=== PATIENT | female | born 1945 | race Caucasian/White ===

== ENCOUNTER 2017-07-23 14:45 | Inpatient (IN) | payer OTHER, MEDICARE ==
--- NOTE | 2017-07-23 15:07 | CPEKG ---
Heart Rate: 77 RR Interval: 779 P-R Interval: 132 QRSD Interval: 94 QT Interval: 408 QTC Interval: 462 P [place]: 56 QRS [place]: -4 T Wave [place]: 76 EKG Severity - NORMAL ECG - EKG Impression: SINUS RHYTHM Electronically Signed By: Franklin Boyer 23-Jul-2017 15:28:45
[2017-07-23] MEDS ORDERED: LIDOCAINE/PRILOCAINE 1 EACH CRTUBE TP ONE (15:16)
--- NOTE | 2017-07-23 15:22 | EDPHY ---
H & P Time Seen by Provider: 07/23/17 15:04 HPI/ROS: Chief complaint. Chest pain HPI. 72-year-old female presents emergency department with chest pain. She felt well this morning and then about 1:00 p.m. developed a cold sweat and tightness in her chest. It went to both shoulders in her throat as well as to her back. Her jaw felt tight. She was nauseated. Her symptoms were worse with climbing stairs and better after she laid down to rest. She did develop a headache. She had half of a 325 mg aspirin prior to arrival. Her symptoms continue but are better. She did notice slight shortness of breath. No pain with deep breathing. No unusual leg pain or swelling. No recent fever or cough though she has a chronic cough secondary to her lung cancer. She had similar symptoms 2 years ago with a normal nuclear stress test. ROS Constitutional. no fever/chills, no weakness Eyes. no problems with vision ENT. no sore throat, no nasal drainage Cardiovascular. Chest tightness Respiratory. Shortness of breath with chronic cough Abdominal. no abdominal pain, no nausea/vomiting, no diarrhea . no problems urinating MS. no calf pain/swelling, no neck/back pain, no joint pain Skin. Diaphoresis Lymph. no swollen glands Neuro. Headache Past Medical/Surgical History: Metastatic lung cancer in active treatment, depression, mitral valve prolapse, hypothyroid, GERD, right lower lobectomy, partial thyroidectomy Social History: , nonsmoker, no alcohol Smoking Status: Never smoked Physical Exam: General Appearance: Alert well-developed female mild distress vital signs are stay Eyes: Pupils equal and round no pallor or injection. ENT, Mouth: Mucous membranes are moist. Respiratory: There are no retractions, lungs are clear to auscultation. Decreased breath sounds on right lower lobe secondary to lobectomy Cardiovascular: Regular rate and rhythm. Gastrointestinal: Abdomen is soft and nontender, no masses, bowel sounds normal. Neurological: Awake and alert, sensory and motor exams grossly normal. Skin: Warm and dry, no rashes. Musculoskeletal: Neck is supple nontender. Extremities symmetrical, full range of motion. Psychiatric: Patient is oriented X 3, there is no agitation. Constitutional: Initial Vital Signs Temperature (C) 36.5 C 07/23/17 14:53 Heart Rate 81 07/23/17 14:53 Respiratory Rate 16 07/23/17 14:53 Blood Pressure 134/78 H 07/23/17 14:53 O2 Sat (%) 97 07/23/17 14:53 O2 Delivery Mode Room Air Allergies/Adverse Reactions: Penicillins Allergy (Mild, Verified 07/23/17 14:49) Rash Sulfa (Sulfonamide Antibiotics) Allergy (Mild, Verified 07/23/17 14:49) Rash Home Medications: Medication Instructions Recorded Bimatoprost 0.03% [LUMIGAN 0.03%] 1 drops EACHEYE HS 08/03/14 Calcium Carbonate [[id number]] 500 mg PO BID 08/03/14 Folic Acid [Folic Acid 1 MG (*)] 5 mg PO DAILY 08/03/14 Levothyroxine [Synthroid 100 mcg 100 mcg PO DAILY06 08/03/14 (*)] Omeprazole [Prilosec 20 mg] 20 mg PO Q2D PRN 08/03/14 Ibuprofen [Motrin (*)] 600 mg PO Q6 PRN #30 tab 08/04/14 Desvenlafaxine 07/23/17 Hydrocodone Bit/Acetaminophen 07/23/17 LORazepam 07/23/17 Mirtazapine 07/23/17 Medical Decision Making - Diagnostics EKG Interpretation: EKG interpreted by me shows normal sinus rhythm with normal interval. Normal axis. QRS is normal there is no significant ST elevation or depression. No arrhythmia. The rate is 77 Imaging Results: Imaging Impressions Chest X-Ray 07/23/17 16:23 Impression: 1. Bilateral opacities could be related to heart failure secondary to heart attack versus pneumonia. 2. See above report for additional findings. Results called and discussed with LINDY HUTTON M.D. on 07/23/2017 at 17:10 Procedures: IV normal saline, monitor Aspirin in the emergency department Nitropaste applied in the emergency department ED Course/Re-evaluation: Re-evaluation 5:15 p.m. the patient and I and her discussed imaging lab EKG findings. We discussed treatment plan including recommendation for admission. They expressed understanding and agreement I consulted and discussed the case with Dr. Wilder, hospitalist who agrees to the admission I consulted and discussed the case with Dr. Shaikh, cardiology, who will see the patient in consultation. He recommends an inch of nitropaste q.6 hours. This is ordered Differential Diagnosis: I considered acute coronary syndrome and D the patient has an elevated troponin though she does not have ST elevation [place]. I also considered pneumonia, pneumothorax, pulmonary embolus - Data Points Laboratory Results: Laboratory Results 07/23/17 15:25 07/23/17 15:25 07/23/17 07/23/17 15:25 15:25 WBC 7.87 10^3/uL 10^3/uL (3.80-9.50) RBC 2.81 10^6/uL L 10^6/uL (4.18-5.33) Hgb 9.5 g/dL L g/dL (12.6-16.3) Hct 27.9 % L % (38.0-47.0) MCV 99.3 fL fL (81.5-99.8) MCH 33.8 pg pg (27.9-34.1) MCHC 34.1 g/dL g/dL (32.4-36.7) RDW 13.8 % % (11.5-15.2) Plt Count 350 10^3/uL 10^3/uL (150-400) MPV 8.7 fL fL (8.7-11.7) Neut % (Auto) 74.3 % H % (39.3-74.2) Lymph % (Auto) 12.5 % L % (15.0-45.0) [place] % (Auto) 8.9 % % (4.5-13.0) Eos % (Auto) 2.0 % % (0.6-7.6) Baso % (Auto) 1.0 % % (0.3-1.7) Nucleat RBC Rel Count 0.0 % % (0.0-0.2) Absolute Neuts (auto) 5.85 10^3/uL 10^3/uL (1.70-6.50) Absolute Lymphs (auto) 0.98 10^3/uL L 10^3/uL (1.00-3.00) Absolute Monos (auto) 0.70 10^3/uL 10^3/uL (0.30-0.80) Absolute Eos (auto) 0.16 10^3/uL 10^3/uL (0.03-0.40) Absolute Basos (auto) 0.08 10^3/uL 10^3/uL (0.02-0.10) Absolute Nucleated RBC 0.00 10^3/uL 10^3/uL (0-0.01) Immature Gran % 1.3 % H % (0.0-1.1) Immature Gran # 0.10 10^3/uL 10^3/uL (0.00-0.10) Sodium 132 mEq/L L mEq/L (134-144) Potassium 4.8 mEq/L mEq/L (3.5-5.2) Chloride 101 mEq/L mEq/L (97-110) Carbon Dioxide 20 mEq/l L mEq/l (22-31) Anion Gap 11 mEq/L mEq/L (8-16) BUN 19 mg/dL mg/dL (7-23) Creatinine 1.2 mg/dL H mg/dL (0.6-1.0) Estimated GFR 44 Glucose 96 mg/dL mg/dL (70-100) Calcium 9.0 mg/dL mg/dL (8.5-10.4) Troponin I 0.587 ng/mL H ng/mL (0.000-0.034) Medications Given: Discontinued Medications Aspirin (Aspirin) 162 mg PO EDNOW ONE Stop: 07/23/17 15:45 Last Admin: 07/23/17 15:46 Dose: 162 mg Departure - Departure Disposition: [facility] Inpatient Acute Clinical Impression: Non-ST elevation [place] (NSTEMI) Chest pain Qualifiers: Chest pain type: chest pain due to myocardial ischemia Ischemic chest pain type : unstable angina pectoris Qualified Code(s): I20.0 - Unstable angina Condition: Fair
[2017-07-23] MEDS ORDERED: ASPIRIN 81 MG CHEWABLE TAB PO ONE (15:44)
[2017-07-23 16:33] LABS: % IMMATURE GRANULYOCYTES 1.3 % (0.0-1.1); ADD DIFF? NO; ADD MORPH? NO; ADD SCAN? NO; ATYPICAL LYMPHOCYTE FLAG 0 (0-99); FRAGMENT RBC FLAG 0 (0-99); HEMATOCRIT 27.9 % (38.0-47.0); HEMOGLOBIN 9.5 g/dL (12.6-16.3); LEFT SHIFT FLG 10 (0-99); LIPEMIA HEMOLYSIS FLAG 90 (0-99); MEAN CELL HEMOGLOBIN 33.8 pg (27.9-34.1); MEAN CELL HEMOGLOBIN CONCENTR. 34.1 g/dL (32.4-36.7); MEAN CELL VOLUME 99.3 fL (81.5-99.8); MEAN PLATELET VOLUME 8.7 fL (8.7-11.7); PLATELET CLUMPS FLAG 0 (0-99); PLATELET COUNT 350 10^3/uL (150-400); RED BLOOD CELL COUNT 2.81 10^6/uL (4.18-5.33); RED CELL DISTRIBUTION WIDTH 13.8 % (11.5-15.2)
[2017-07-23 16:39] LABS: ANION GAP 11 mEq/L (8-16); CARBON DIOXIDE 20 mEq/l (22-31); CHLORIDE 101 mEq/L (97-110); CREATININE 1.2 mg/dL (0.6-1.0); GLOMERULAR FILTRATION RATE 44; GLUCOSE 96 mg/dL (70-100); POTASSIUM 4.8 mEq/L (3.5-5.2); SODIUM 132 mEq/L (134-144)
[2017-07-23 16:49] LABS: TROPONIN I 0.587 ng/mL (0.000-0.034)
[2017-07-23] MEDS ORDERED: NITROGLYCERIN 2% 1 GM PACKET ONE (17:45)
[2017-07-23] MEDS: NITROGLYCERIN 2% 1 GM PACKET TP SCH ×2 (17:50→23:04)
[2017-07-23] MEDS ORDERED: ACETAMINOPHEN 325 MG TAB PO PRN (20:31)
[2017-07-23] MEDS ORDERED: ONDANSETRON 4 MG/2 ML VIAL IVP PRN (20:31)
[2017-07-23] MEDS ORDERED: ONDANSETRON DISINTEGRATING 4 MG TAB PO PRN (20:31)
[2017-07-23] MEDS ORDERED: LORazepam 1 MG TAB PO PRN (20:34)
--- NOTE | 2017-07-23 21:49 | GHP ---
[f rep st] HISTORY AND PHYSICAL DATE OF ADMISSION: 07/23/2017 CHIEF COMPLAINT: Chest pain. HISTORY OF PRESENT ILLNESS: This is a 72-year-old female with a history of metastatic lung cancer. This was diagnosed 4 or 5 years ago. Then she did undergo lobectomy when it was thought to be a chelsey tary nodule. However, 6 months later, she developed bone metastasis. She has been undergoing therap y on and off since then. She had been on a trial recently. She was in her usual state of health thi s morning, but then in the early afternoon, developed a sudden onset of chest pressure associated wit h diaphoresis and shortness of breath. No nausea and vomiting. Chest pain continued and so she took an aspirin. Now it is completely resolved with nitroglycerin. She has had no previous cardiac hist ory. No fevers or chills. Shortness of breath is better. REVIEW OF SYSTEMS: A 10-point review of systems was obtained and other than stated was negative. PAST MEDICAL HISTORY: 1. Metastatic lung cancer to bone. 2. Depression. 3. Hypothyroidism. SOCIAL HISTORY: No smoking. Occasional alcohol. FAMILY HISTORY: Father had coronary disease in his 50s. PHYSICAL EXAM: VITAL SIGNS: Afebrile, blood pressure is 143/73, heart rate 79, oxygen saturation 94 % on room air. GENERAL: The patient is well developed, in no apparent distress. HEENT: Nonicteric sclerae. Extraocular movements intact. Moist mucous membranes. NECK: Supple. No thyromegaly. L UNGS: Good effort. Clear to auscultation bilaterally. CARDIOVASCULAR: Regular rate and rhythm. N o murmurs or gallops. ABDOMEN: Positive bowel sounds. Soft, nontender, nondistended. No hepatospl enomegaly. EXTREMITIES: No clubbing, cyanosis, or edema. SKIN: Without rash. Dry and intact. NE URO: Alert and oriented x3. Moving all 4 extremities equally. PSYCH: Normal mood and affect. LABORATORY DATA: Hemoglobin is 9.5, which is close to her baseline. Chemistry does show a slightly elevated creatinin e at 1.2, with the last creatinine 1.1 a few months ago. This is fairly baseline. EKG personally reviewed and interpreted reveals subtle ST-segment depressions in lead 2 and maybe the lateral leads, but no ST-segment changes. Chest x-ray shows some possible asymmetric edema. ASSESSMENT: This is a 72-year-old female presenting with chest pain and elevated troponin. PLAN: 1. [id number]-[id number] elevation [place]. The patient is chest pain-free. Cardiology has been called. They would like to keep her n.p.o. We will get another troponin here now and in the morning. Will contin ue on aspirin. If she develops any worsening chest pain, then we will consider an emergent angiogram . Otherwise, she will get an angiogram tomorrow. 2. Possible pulmonary edema versus pneumonia. The patient is not really having symptoms of pneumoni a. She does have a lung malignancy. She does not seem to be that symptomatic currently. After her angiogram, could consider Lasix. Would also consider CAT scanning to get a better look. Her BNP is somewhat elevated, but not horribly. Will get an echocardiogram as well. 3. History of lung cancer. She sees Nita Murguia. Apparently stable. /[id number]/MODL
[2017-07-23] MEDS: BRIMONIDINE 0.1% 5 ML OPHT.BTL EACHEYE SCH (22:23)
[2017-07-23] MEDS: BIMATOPROST 0.03% EACHEYE SCH (22:23)
[2017-07-23] MEDS: MIRTAZAPINE 30 MG ODTAB PO SCH (22:49)
[2017-07-23] MEDS: HYDROCODONE/APAP 5/325 TAB PO PRN (22:59)
[2017-07-24] MEDS: HYDROCODONE/APAP 5/325 TAB PO PRN ×2 (04:29→20:04)
[2017-07-24 04:43] LABS: APTT 25.9 SEC (23.0-38.0); INR 1.04 (0.83-1.16); PROTIME(PATIENT) 13.5 SEC (12.0-15.0)
[2017-07-24 04:47] LABS: % IMMATURE GRANULYOCYTES 1.1 % (0.0-1.1); ABSOLUTE IMMATURE GRANULOCYTES 0.07 10^3/uL (0.00-0.10); ADD DIFF? NO; ADD MORPH? NO; ADD SCAN? NO; ATYPICAL LYMPHOCYTE FLAG 0 (0-99); FRAGMENT RBC FLAG 0 (0-99); HEMATOCRIT 26.5 % (38.0-47.0); HEMOGLOBIN 8.9 g/dL (12.6-16.3); LEFT SHIFT FLG 10 (0-99); LIPEMIA HEMOLYSIS FLAG 80 (0-99); MEAN CELL HEMOGLOBIN 33.6 pg (27.9-34.1); MEAN CELL HEMOGLOBIN CONCENTR. 33.6 g/dL (32.4-36.7); MEAN PLATELET VOLUME 8.5 fL (8.7-11.7); PLATELET CLUMPS FLAG 10 (0-99); PLATELET COUNT 312 10^3/uL (150-400); RED BLOOD CELL COUNT 2.65 10^6/uL (4.18-5.33); RED CELL DISTRIBUTION WIDTH 13.7 % (11.5-15.2)
[2017-07-24 05:00] LABS: ALANINE AMINOTRANSFERASE 32 IU/L (9-52); ALBUMIN 3.2 g/dL (3.5-5.0); ALKALINE PHOSPHATASE 88 IU/L (38-126); ANION GAP 7 mEq/L (8-16); ASPARTATE AMINOTRANSFERASE 33 IU/L (14-46); BILIRUBIN,TOTAL 0.3 mg/dL (0.1-1.4); CARBON DIOXIDE 22 mEq/l (22-31); CHLORIDE 103 mEq/L (97-110); CREATININE 1.2 mg/dL (0.6-1.0); GLOMERULAR FILTRATION RATE 44; GLUCOSE 85 mg/dL (70-100); POTASSIUM 4.7 mEq/L (3.5-5.2); SODIUM 132 mEq/L (134-144); TOTAL PROTEIN 5.7 g/dL (6.3-8.2)
[2017-07-24] MEDS: NITROGLYCERIN 2% 1 GM PACKET TP SCH ×3 (06:18→19:34)
[2017-07-24] MEDS ORDERED: FAMOTIDINE 20 MG TAB PO ONE (07:26)
[2017-07-24] MEDS ORDERED: diphenhydrAMINE 25 MG CAP PO ONE (07:26)
[2017-07-24] MEDS ORDERED: DIAZEPAM 5 MG TAB PO ONE (07:26)
[2017-07-24] MEDS ORDERED: TEMAZEPAM 15 MG CAP PO PRN (07:26)
--- NOTE | 2017-07-24 07:28 | PDPROPOC ---
Sedation Plan of Care Sedation Plan of Care: vital signs stable, mental status noted, patient educated of risks, benefits, alternatives, patient can tolerate sedation ASA Classification: ASA 3 Planned drugs: fentanyl, midazolam Mallampati Score: Class 1 Mallampati Reference Image: Patient passed 3-3-2 rule?: Yes
[2017-07-24] MEDS ORDERED: NS 1,000 ML IV SCH ×2 (07:30→15:15)
--- NOTE | 2017-07-24 07:32 | PDCARCONS ---
Cardiology Consult Reason for Consult: elevated troponins with chest pressure Chief Complaint: cold sweats and nausea Requesting Physician: Meño History of Present Illness: 72 yo, no prior CV history with hour and half of nauseas, cold sweats, tightness in the shoulders and lump in the throat. Resolved with aspirin and time. No pain free. No prior CV history. Health complicated by Stage 4 non- small cell lung CA. S/P immunologic therapy on protocol. Last treatment in January. On my arrival this morning she is feeling relatively well. She has had no further episodes of pressure, palpitations, nausea. She denies syncope, near syncope, PND, orthopnea. She has a history of longstanding treated hypertension on lisinopril. She has a family history of early heart disease with a father who had an [place] at 56. She has no history of hyperlipidemia or diabetes. History Information - Allergies/Home Medication List Allergies/Adverse Reactions: Penicillins Allergy (Mild, Verified 07/23/17 14:49) Rash Sulfa (Sulfonamide Antibiotics) Allergy (Mild, Verified 07/23/17 14:49) Rash Home Medications: Bimatoprost 0.03% [LUMIGAN 0.03%] 1 drops EACHEYE BID 08/03/14 [Last Taken 07/23 09:00] Omeprazole [Prilosec 20 mg] 20 mg PO DAILY PRN 08/03/14 [Last Taken 07/23/17] Brimonidine 0.1% [ALPHAGAN P 0.1% (*)] 1 drop EACHEYE HS 07/23/17 [Last Taken ] Desvenlafaxine [Desvenlafaxine ER] 50 mg PO DAILY 07/23/17 [Last Taken 07/23/17] Hydrocodone/Acetaminophen [[place] 5/325 (*)] 2 tab PO BID PRN 07/23/17 [Last Taken 07/23/17 18:20] LORazepam [Ativan (*)] 1 mg PO HS PRN 07/23/17 [Last Taken 07/22/17] Levothyroxine [Synthroid 88 mcg (*)] 88 mcg PO DAILY@09 07/23/17 [Last Taken 08/29] Mirtazapine [Remeron Soltab 30 mg (*)] 30 mg PO HS 07/23/17 [Last Taken 07/22/17 ] Multivitamins [Multivitamin (*)] 1 each PO DAILY 07/23/17 [Last Taken 07/22/17] I have personally reviewed and updated: family history, medical history, social history, surgical history Past Medical History: - Past Medical History hypertension Additional medical history: Non-Small Cell lung cancer - Surgical History Additional surgical history: R lower lobe lobectomy. Port placement. Thyroidectomy - Family History Positive for: father with history of CAD younger than 55 - Social History Smoking Status: Never smoked Cardiac History - Cardiac History Cardiac Risk Factors: family history of premature CAD Timing/Duration: Days Severity: severe Severity Scale: 7 Location: other (shoulders an throat) Activities at Onset: rest Associated Symptoms: fever/chills, nausea/vomiting KYRA Risk Evaluation age greater or equal to 65: yes greater or equal to 3 CAD risk factors: no known CAD(stenosis greater or eqaul to 50%): no ASA use in past 7 days: yes severe angina(greater or equal to 2 episodes in 24hrs): yes EKG ST changes greater or equal to 0.5mm: yes positive cardiac marker: yes Total Score: 6 KYRA Score: 40.9% risk Physical Exam Physical Exam: Temp Pulse Resp BP Pulse Ox 36.5 C 75 14 138/76 H 92 07/23/17 23:16 07/23/17 23:16 07/23/17 23:16 07/23/17 23:16 07/23/17 23:16 Constitutional: no apparent distress, not in pain Eyes: PERRL, anicteric sclera Ears, Nose, Mouth, Throat: moist mucous membranes Cardiovascular: regular rate and rhythym, no murmur, rub, or gallop, No JVD Peripheral Pulses: 1+: carotid (R), carotid (L), femoral (R), femoral (L) Respiratory: no respiratory distress, no rales or rhonchi, clear to auscultation Gastrointestinal: normoactive bowel sounds, soft, non-tender abdomen Skin: warm, normal color, no rashes or abrasions Musculoskeletal: full muscle strength Neurologic: AAOx3, sensation intact bilaterally, No facial droop Psychiatric: interacting appropriately Lymph, Heme, Immunologic: no cervical LAD, no supraclavicular LAD Lab and Imaging 07/24/17 04:15 07/24/17 04:15 WBC 6.44 10^3/uL (3.80-9.50) 07/24/17 04:15 RBC 2.65 10^6/uL (4.18-5.33) L 07/24/17 04:15 Hgb 8.9 g/dL (12.6-16.3) L 07/24/17 04:15 Hct 26.5 % (38.0-47.0) L 07/24/17 04:15 MCV 100.0 fL (81.5-99.8) H 07/24/17 04:15 MCH 33.6 pg (27.9-34.1) 07/24/17 04:15 MCHC 33.6 g/dL (32.4-36.7) 07/24/17 04:15 RDW 13.7 % (11.5-15.2) 07/24/17 04:15 Plt Count 312 10^3/uL (150-400) 07/24/17 04:15 MPV 8.5 fL (8.7-11.7) L 07/24/17 04:15 Neut % (Auto) 66.7 % (39.3-74.2) 07/24/17 04:15 Lymph % (Auto) 17.2 % (15.0-45.0) 07/24/17 04:15 [place] % (Auto) 9.9 % (4.5-13.0) 07/24/17 04:15 Eos % (Auto) 4.2 % (0.6-7.6) 07/24/17 04:15 Baso % (Auto) 0.9 % (0.3-1.7) 07/24/17 04:15 Nucleat RBC Rel Count 0.0 % (0.0-0.2) 07/24/17 04:15 Absolute Neuts (auto) 4.29 10^3/uL (1.70-6.50) 07/24/17 04:15 Absolute Lymphs (auto) 1.11 10^3/uL (1.00-3.00) 07/24/17 04:15 Absolute Monos (auto) 0.64 10^3/uL (0.30-0.80) 07/24/17 04:15 Absolute Eos (auto) 0.27 10^3/uL (0.03-0.40) 07/24/17 04:15 Absolute Basos (auto) 0.06 10^3/uL (0.02-0.10) 07/24/17 04:15 Absolute Nucleated RBC 0.00 10^3/uL (0-0.01) 07/24/17 04:15 Immature Gran % 1.1 % (0.0-1.1) 07/24/17 04:15 Immature Gran # 0.07 10^3/uL (0.00-0.10) 07/24/17 04:15 PT 13.5 SEC (12.0-15.0) 07/24/17 04:15 INR 1.04 (0.83-1.16) 07/24/17 04:15 APTT 25.9 SEC (23.0-38.0) 07/24/17 04:15 Sodium 132 mEq/L (134-144) L 07/24/17 04:15 Potassium 4.7 mEq/L (3.5-5.2) 07/24/17 04:15 Chloride 103 mEq/L (97-110) 07/24/17 04:15 Carbon Dioxide 22 mEq/l (22-31) 07/24/17 04:15 Anion Gap 7 mEq/L (8-16) L 07/24/17 04:15 BUN 20 mg/dL (7-23) 07/24/17 04:15 Creatinine 1.2 mg/dL (0.6-1.0) H 07/24/17 04:15 Estimated GFR 44 07/24/17 04:15 Glucose 85 mg/dL (70-100) 07/24/17 04:15 Calcium 9.0 mg/dL (8.5-10.4) 07/24/17 04:15 Total Bilirubin 0.3 mg/dL (0.1-1.4) 07/24/17 04:15 AST 33 IU/L (14-46) 07/24/17 04:15 ALT 32 IU/L (9-52) 07/24/17 04:15 Alkaline Phosphatase 88 IU/L (38-126) 07/24/17 04:15 Troponin I 2.240 ng/mL (0.000-0.034) H 07/24/17 04:15 NT-Pro-B Natriuret Pep 1660 pg/mL (0-125) H 07/23/17 15:25 Total Protein 5.7 g/dL (6.3-8.2) L 07/24/17 04:15 Albumin 3.2 g/dL (3.5-5.0) L 07/24/17 04:15 Laboratory Tests 07/23/17 07/23/17 07/23/17 15:25 15:25 21:10 Troponin I 0.587 H 1.820 H NT-Pro-B Natriuret Pep 1660 H LDL Cholesterol, Calc 07/24/17 07/24/17 04:15 04:15 Troponin I 2.240 H NT-Pro-B Natriuret Pep LDL Cholesterol, Calc 107 H Interpretation: Chest x-ray reveals elevated right hemidiaphragm. Cardiomegaly. EKG additional interpertation: EKG revealed sinus rhythm without acute ST-T changes. Echocardiogram: Echocardiogram today showed no pericardial effusion with normal regional wall motion. She had no significant valvular abnormalities by Doppler. A/P Assessment: Problem list: 1. Acute episode of chest pressure, nausea associated with rise in troponin consistent with an acute coronary syndrome. 2. Metastatic non-small cell adenocarcinoma. 3. History of hypertension Impression: Clinical history and laboratory data suggest an acute coronary syndrome. Patient has modest cardiovascular risk based on age, hypertension, family history. Her EKG does not suggest acute injury. She has risk of non coronary cardiac injury based on use of immunologic agents, however, these drugs were administered remotely. The possibility of a stress-induced cardiomyopathy always exists, however there does not appear to be in acute stressor. Recommendations are for aggressive risk stratification with a coronary angiogram done from the radial artery today. Pending clinical results further recommendations will come. In the short term continue antiplatelet therapy, Darin inhibition. Plan: Diagnostic coronary angiogram today. Past Medical History PMH: - Personal History Current Tetanus/Diphtheria Vaccine: Unsure Current Tetanus Diphtheria and Acellular Pertussis (TDAP): Unsure - Medical/Surgical History Hx Asthma: No Hx Chronic Respiratory Disease: No Hx Cardiac Disease: No Hx Diabetes: No Hx Renal Disease: No Hx Alcoholism: No Hx Cirrhosis: No Hx HIV/AIDS: No Hx Splenectomy or Spleen Trauma: No Other PMH: medical Lung Cancer , depression MVP, hypothyroid, Reflux. surgery lower right lobectomy, left shoulder repair, right thyroid lob removed - Social History Smoking Status: Never smoked Additional Social History: Review of Systems Review of Systems: - Review of Systems Constitutional: chills, diaphoresis, malaise. denies: fever EENTM: no symptoms reported Respiratory: cough. denies: orthopnea, wheezing, hurts to breath Cardiac: denies: edema, irregular heart rate, lightheadedness, palpitations, syncope Gastrointestinal/Abdominal: constipation, nausea. denies: diarrhea, vomiting, black stools, blood streaked stools Genitourinary: no symptoms Musculoskelatal: no symptoms Skin: no symptoms Neurological: no symptoms Hematologic/Lymphatic: no symptoms reported Immunologic/allergic: no symptoms reported
[2017-07-24 08:37] LABS: ANION GAP 9 mEq/L (8-16); CALCIUM 8.8 mg/dL (8.5-10.4); CARBON DIOXIDE 21 mEq/l (22-31); CHLORIDE 103 mEq/L (97-110); CHOLESTEROL 194 mg/dL (140-220); CHOLESTEROL/HDL RATIO 3.23 RATIO (1.00-4.44); CREATININE 1.2 mg/dL (0.6-1.0); GLOMERULAR FILTRATION RATE 44; GLUCOSE 86 mg/dL (70-100); HIGH DENSITY LIPOPROTEIN 60 mg/dL (40-85); LDL/HDL RATIO 1.78 RATIO (1.00-3.22); LOW DENSITY LIPOPROTEIN 107 mg/dL (80-100); MAGNESIUM 1.7 mg/dL (1.6-2.3); NON-HIGH DENSITY LIPOPROTEIN 134 mg/dL (90-129); POTASSIUM 4.7 mEq/L (3.5-5.2); SODIUM 133 mEq/L (134-144); TRIGLYCERIDE 136 mg/dL (35-135); VERY LOW DENSITY LIPOPROTEINS 27 mg/dL (8-25)
[2017-07-24] MEDS: BIMATOPROST 0.03% EACHEYE SCH (09:17)
[2017-07-24] MEDS: ASPIRIN EC 325 MG TAB PO SCH (09:19)
--- NOTE | 2017-07-24 09:22 | CPEKG ---
Heart Rate: 69 RR Interval: 870 P-R Interval: 132 QRSD Interval: 86 QT Interval: 436 QTC Interval: 467 P [place]: 61 QRS [place]: -11 T Wave [place]: 82 EKG Severity - BORDERLINE ECG - EKG Impression: SINUS RHYTHM EKG Impression: BORDERLINE T WAVE ABNORMALITIES Electronically Signed By: Lokesh Glover 27-Jul-2017 08:57:40
[2017-07-24] MEDS: Desvenlafaxine [Desvenlafaxine Er] 50 MG PO SCH (10:01)
[2017-07-24] MEDS: LEVOTHYROXINE 88 MCG TAB PO SCH (10:03)
--- NOTE | 2017-07-24 10:46 | PDMN ---
Medical Necessity Medical necessity: est los >2 mn for NSTEMI, possible pulmonary edema vs pna; for Card consult, cath, consider Lasix s/p cath; comorbid lung ca; per H&P & order 07/23/17
--- NOTE | 2017-07-24 10:54 | ECHO ---
[email or web address] [address] Main: [phone] Fax: Transthoracic Echocardiogram Name: SHIRLEY ACKERMAN MR#: [id number] Study Date: 07/24/2017 Study Time: 08:06 AM Date of : 1945 Age: 72 year(s) Height: 165.1 cm (65 in.) Weight: 62.14 kg (137 lb.) BSA: 1.68 m2 Gender: Female Examination: Echo Indication: ?chf NSTEMI h/o lung cancer Image Quality: Technically Difficult Contrast: Requested by: Aamir Wilder BP: 134 mmHg/74 mmHg Heart Rate: Rhythm: Indication: ?chf NSTEMI h/o lung cancer Procedure Staff Urban Designer: Irish Espinosa Physician: Sinan Yarbrough Requesting Provider: Conclusions: No regional wall motion abnormalities with normal left ventricular systolic function ejection fraction of 63% mild aortic regurgitation with normal chamber dimensions normal right ventricular systolic pressure Measurements: Chambers Valvular Assessment AV/MV Valvular Assessment TV/PV Normal Normal Normal Name Value Range Name Value Range Name Value Range Ao Audrey (MM): 3.3 cm (2.2 cm-3.7 AV Vmax: 0.99 m/s (1 m/s-1.7 PV Vmax: 0.57 m/s (0.6 m/s-0.9 cm) m/s) m/s) IVSd (2D): 0.8 cm (0.6 cm-1.1 AV maxP mmHg ( - ) PV PGmax: 1 mmHg ( - ) cm) LVOT Vmax: 0.66 m/s (0.7 m/s-1.1 LVDd (2D): 4.5 cm (3.9 cm-5.3 m/s) cm) AR (PHT): 612 ms ( - ) LVDs (2D): 2.9 cm (2.1 cm-4 MV E Vmax: 0.73 m/s ( - ) cm) MV A Vmax: 0.85 m/s ( - ) LVPWd (2D): 0.8 cm ( - ) MV E/A: 0.86 ( - ) LVEF (BP): 63 % (>=55 %) RVDd(2D): 2.3 cm (1.9 cm-3.8 cmmm) Continued Measurements: Chambers Valvular Assessment AV/MV Valvular Assessment TV/PV Name Value Name Value Name Value LADs Lon.2 cm MV DecTime: 215 m/s CVP (est.): 5 mmHg LA Area: 13.1 cm2 MV E/E' Septal: 14.30 LA Volume: 33 ml MV E/E' Lateral: 9.10 LA Volume Index: 19.6 ml/m2 AR Vmax: 4.25 cm/s Patient: SHIRLEY ACKERMAN Study Date: 07/24/2017 Page 1 of 2 08:06 AM Additional Vessels Name Value Ao Ascendin.0 cm Findings: Left Ventricle: Normal size left ventricle. No LV hypertrophy. Normal global systolic LV function. EF is 63 %. No regional wall motion abnormality. Normal diastolic LV function. Right Ventricle: Normal size right ventricle. Left Atrium: The left atrium is normal in size. Right Atrium: The right atrium is normal in size. Mitral Valve: The mitral valve is normal in appearance and function. There is no mitral valve regurgitation. Aortic Valve: The aortic valve is normal in appearance and function. The aortic valve is tri-leaflet. Mild aortic valve regurgitation is present. Tricuspid Valve: The tricuspid valve is normal in appearance and function. Trivial tricuspid valve regurgitation. Pulmonic Valve: The pulmonic valve is normal in appearance and function. Aorta: The aorta is normal. Normal size aortic root measuring 3.3 cm. Normal size ascending aorta measuring 3.0 cm. Pericardium: No pericardial effusion. (No Signature Object) Patient: SHIRLEY ACKERMAN Study Date: 07/24/2017 Page 2 of 2 08:06 AM [id number]
[2017-07-24] MEDS ORDERED: LIDOCAINE 1% 300 MG/30 ML SDV ONE (12:38)
[2017-07-24] MEDS ORDERED: fentaNYL 100 MCG/2 ML INJ ONE (12:38)
[2017-07-24] MEDS ORDERED: MIDAZOLAM 2 MG/2 ML VIAL ONE (12:38)
[2017-07-24] MEDS ORDERED: VERAPAMIL 5 MG/2 ML VIAL ONE (12:39)
[2017-07-24] MEDS ORDERED: IOPAMIDOL (ISOVUE-370) 150 ML BTL IV ONE ×2 (12:39→13:33)
[2017-07-24] MEDS ORDERED: HEPARIN 10,000 UNIT/10 ML MDV ONE (12:39)
--- NOTE | 2017-07-24 13:37 | HOSPPROG ---
Hospitalist Progress Note Assessment/Plan: 72 yo F with PMH of metastatic lung cancer pw chest pain found to be 2/2 NSETMI # NSTEMI: presenting with chest holloway and non diagnostic ECG but rise in troponin to >2, plan for cardiac catheterization today per Dr. Yarbrough. Currently CP free. 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 Patient remains on RA, non toxic appearing. Echo with preserved EF. # h/o PE: no longer on AC # anemia: this is chronic but currently slightly lower than prior, related to underlying cancer and cancer treatments # SIADH: with Na currently at 132 which is baseline for her, will monitor # ckd: baseline of 1.2 and currently at baseline, will monitor post cath for signs of MONICA # GERD, hypothyroid--continue op mgmt # IP status, will need > 48 hours stay for eval/mgmt of above Patient new to my care. Old records reviewed and summarized as above. Subjective: no significant overnight events, patient feeling anxious to get to the cath, no chest pain today but does have some upper back pain which she had yesterday as well Objective: Vital Signs Temp Pulse Resp BP Pulse Ox 36.7 C 74 15 135/74 H 93 07/24/17 12:00 07/24/17 12:00 07/24/17 12:00 07/24/17 07:39 07/24/17 12:00 Laboratory Results 07/24/17 04:15 07/24/17 04:15 PT 13.5 SEC (12.0-15.0) 07/24/17 04:15 INR 1.04 (0.83-1.16) 07/24/17 04:15 awake alert nad anicteric op clear rrr no mrg cta, dec bs at bases soft nt nd no cce warm dry well perfused oriented appropriate ICD10 Worksheet Patient Problems: Problems Problem Status Onset Chest pain Acute Non-ST elevation [place] (NSTEMI) Acute
[2017-07-24] MEDS ORDERED: CLOPIDOGREL BISULFATE 75 MG TAB ONE (14:15)
[2017-07-24] MEDS ORDERED: ATROPINE SULFATE 1 MG/10 ML SYR IVP PRN (15:02)
--- NOTE | 2017-07-24 15:03 | CPEKG ---
Heart Rate: 75 RR Interval: 800 P-R Interval: 136 QRSD Interval: 92 QT Interval: 428 QTC Interval: 479 P [place]: 22 QRS [place]: 2 T Wave [place]: 65 EKG Severity - NORMAL ECG - EKG Impression: SINUS RHYTHM Electronically Signed By: Lokesh Glover 27-Jul-2017 08:58:02
--- NOTE | 2017-07-24 15:10 | PDDXCAT ---
Diagnostic Cath Note - . Date: 07/24/17 Computer Project Manager: Zenon Indication: other (Non-Q-wave myocardial infarction) - Procedure Access: left wrist Procedure: left heart catheterization - Materials Left Heart Cath size: 5F Left Heart Cath materials: JL3.5, JR4.0 - Findings-Left Heart Catheterization LM: Short unobstructed LAD: Luminal irregularities of 20-30% the proximal segment. The vessel reaches the apex and gives rise to principal diagonal LCX: Thrombotic occlusion of the proximal circumflex with large obtuse marginal branch RCA: Dominant: Luminal irregularities without focal obstruction. Collateral to the obtuse marginal branch Complications: None Estimated blood loss: <50ml Closure method: TR Band Assessment: Posterior wall myocardial infarction with thrombotic occlusion of the proximal circumflex. Mild to moderate nonobstructive atherosclerotic cardiovascular disease involving the LAD and right coronary. Plan: Emergent PCI Intervention: Procedure: PCI and stenting of the proximal circumflex artery For details of the procedure please see attached computer report. After reviewing diagnostic angiograms elected to proceed with emergency PCI. Patient was anticoagulated with heparin. Therapeutic ACT was confirmed. Initial attempts at cannulating the left main coronary artery using the 5 Danish system from the left radial artery were made. The guide catheters deep seated into the proximal LAD and caused ventricular is a powers of pressure. When the catheters were withdrawn there was not an adequate support to pass wire or balloon/stents into the proximal circumflex. Ultimately a 0.014 sdv pilot/navigator/dds operator 50 wire was used to cross the stenosis. Pre dilatation was performed with a 2.5 mm balloon. Stents would not pass due to proximal poor guide support. The wires were withdrawn. Multiple attempts at other guides were made but failed. Ultimately we upsized to a 6 Danish in the radial artery. Ultimately a 6 Danish extra-support left catheter 4.0 was used to intubate the left main coronary artery. The 0.014 sdv pilot/navigator/dds operator 50 wire was used to cross the lesion placed distally. Pre dilatation was performed again with a 2.5 mm balloon x2. A 2 2.25 x 12 mm synergy stent was placed across the stenosis and deployed using a single inflation at high pressure to reach a diameter of 2.5 mm. Repeat angiogram showed KYRA grade 3 flow. The wire was withdrawn. The guiding catheter was withdrawn. Sheath was removed using a TR band. Conclusions: Posterior wall myocardial infarction status post successful PCI and stenting of the proximal circumflex. Patient will be continued on dual antiplatelet therapy uninterrupted for at least 1 year. Aggressive secondary prevention clinical follow-up. Patient Problems: Problems Problem Status Onset Chest pain Acute Non-ST elevation [place] (NSTEMI) Acute
--- NOTE | 2017-07-24 16:29 | ASMTCASEMG ---
Living Arrangements What is your living Answers: With Spouse arrangement? Who do you live with? Type Of Residence What kind of residence do Answers: House you live in? Discharge Plan Comments Coordination Status Comments Notes: Chart reviewed and spoke w/ MARLON Anderson. Pt is a 72 y/o female admitted w/ chest pain. Pt is having a CATH placed. Pt will most likely d/c independent when she is medically stable w/ supportive . No therapies ordered at this time. CM available for changes. Date Signed: 07/24/2017 04:28 PM Electronically Signed By:ISAIAS Lai
[2017-07-24] MEDS: ATORVASTATIN CALCIUM 40 MG TAB PO SCH (19:33)
[2017-07-24] MEDS: MIRTAZAPINE 30 MG ODTAB PO SCH (20:04)
[2017-07-24] MEDS: BRIMONIDINE 0.1% 5 ML OPHT.BTL EACHEYE SCH (23:11)
[2017-07-24] MEDS: BIMATOPROST 0.01% 2.5 ML OPHT.BTL EACHEYE SCH (23:12)
[2017-07-25] MEDS: NITROGLYCERIN 2% 1 GM PACKET TP SCH ×2 (00:10→06:28)
[2017-07-25] MEDS: BIMATOPROST 0.03% EACHEYE SCH (01:52)
[2017-07-25 06:22] LABS: % IMMATURE GRANULYOCYTES 1.2 % (0.0-1.1); ABSOLUTE IMMATURE GRANULOCYTES 0.09 10^3/uL (0.00-0.10); ADD DIFF? NO; ADD MORPH? NO; ADD SCAN? NO; ATYPICAL LYMPHOCYTE FLAG 10 (0-99); FRAGMENT RBC FLAG 0 (0-99); HEMATOCRIT 26.4 % (38.0-47.0); HEMOGLOBIN 8.7 g/dL (12.6-16.3); LEFT SHIFT FLG 10 (0-99); LIPEMIA HEMOLYSIS FLAG 80 (0-99); MEAN CELL HEMOGLOBIN 33.1 pg (27.9-34.1); MEAN CELL VOLUME 100.4 fL (81.5-99.8); MEAN PLATELET VOLUME 8.4 fL (8.7-11.7); PLATELET CLUMPS FLAG 20 (0-99); PLATELET COUNT 297 10^3/uL (150-400); RED BLOOD CELL COUNT 2.63 10^6/uL (4.18-5.33)
[2017-07-25 06:40] LABS: ALBUMIN 3.5 g/dL (3.5-5.0); ANION GAP 8 mEq/L (8-16); ASPARTATE AMINOTRANSFERASE 33 IU/L (14-46); BILIRUBIN,TOTAL 0.4 mg/dL (0.1-1.4); CALCIUM 8.4 mg/dL (8.5-10.4); CARBON DIOXIDE 22 mEq/l (22-31); CHLORIDE 105 mEq/L (97-110); CREATININE 1.1 mg/dL (0.6-1.0); GLOMERULAR FILTRATION RATE 49; GLUCOSE 85 mg/dL (70-100); LACTATE DEHYDROGENASE 637 IU/L (313-618); MAGNESIUM 1.9 mg/dL (1.6-2.3); POTASSIUM 4.6 mEq/L (3.5-5.2); SODIUM 135 mEq/L (134-144)
[2017-07-25] MEDS: HYDROCODONE/APAP 5/325 TAB PO PRN (08:30)
[2017-07-25] MEDS: ATORVASTATIN CALCIUM 40 MG TAB PO SCH (08:32)
[2017-07-25] MEDS: LEVOTHYROXINE 88 MCG TAB PO SCH (08:32)
[2017-07-25] MEDS: ASPIRIN EC 325 MG TAB PO SCH (08:32)
[2017-07-25] MEDS: Desvenlafaxine [Desvenlafaxine Er] 50 MG PO SCH (08:42)
[2017-07-25] MEDS: BIMATOPROST 0.01% 2.5 ML OPHT.BTL EACHEYE SCH (08:44)
[2017-07-25] MEDS ORDERED: CLOPIDOGREL BISULFATE 75 MG TAB PO SCH (09:00)
--- NOTE | 2017-07-25 09:10 | CPEKG ---
Heart Rate: 82 RR Interval: 732 P-R Interval: 136 QRSD Interval: 92 QT Interval: 428 QTC Interval: 500 P [place]: 72 QRS [place]: 46 T Wave [place]: 121 EKG Severity - ABNORMAL ECG - EKG Impression: SINUS RHYTHM EKG Impression: NONSPECIFIC T ABNORMALITIES, LATERAL LEADS EKG Impression: BORDERLINE PROLONGED QT INTERVAL Electronically Signed By: Lokesh Glover 27-Jul-2017 08:58:12
[2017-07-25 10:19] VITALS: BP 121/70; PULSE 84; RESP 22; TEMP 97.5; O2SAT 94
--- NOTE | 2017-07-25 10:27 | SOAPPROG ---
MARY Progress Note Assessment/Plan: Assessment: 1. Acute posterior myocardial infarction status post PCI. 2. Residual nonobstructive coronary artery disease. 3. 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 4. Hyperlipidemia 5. Anemia Procedure: 07/24 : PCI and stenting of the circumflex artery.Echocardiogram. 07/25/17 10:26 Impression: Day 1 status post PCI and stenting of the circumflex artery. Uncomplicated myocardial infarction. Small episode of bleeding at puncture site last evening now resolved with minimal ecchymosis and intact distal pulse. Recommendations: Discharge from the hospital on aspirin, Plavix for 1 year, high-dose statin therapy. Goal LDL cholesterol less than 70 mg/dL. Follow-up Zenon 1 week with referral to cardiac rehabilitation. Subjective: Feeling well, no further angina, no PND orthopnea, no syncope near syncope. Small episode of bleeding at the puncture site last night controlled with pressure. No hand or arm pain. Objective: Medications Generic Name Dose Route Start Last Admin Trade Name Freq PRN Reason Stop Dose Admin Aspirin Buffered 325 mg 07/24/17 09:00 07/25/17 08:32 Aspirin Ec PO 01/20/18 08:59 325 mg DAILY [facility] Atorvastatin Calcium 80 mg 07/24/17 15:15 07/25/17 08:32 Lipitor PO 01/20/18 15:14 80 mg DAILY [facility] Clopidogrel Bisulfate 75 mg 07/25/17 09:00 07/25/17 08:32 Plavix PO 01/21/18 08:59 75 mg DAILY FRANKLYN Vital Signs Temp Pulse Resp BP Pulse Ox 36.4 C 84 22 H 121/70 H 94 07/25/17 08:00 07/25/17 08:00 07/25/17 08:00 07/25/17 08:00 07/25/17 08:00 Laboratory Results 07/25/17 06:00 07/25/17 06:00 07/24/17 07/25/17 07/26/17 05:59 05:59 05:59 Intake Total 1100 Balance 1100 PT 13.5 SEC (12.0-15.0) 07/24/17 04:15 INR 1.04 (0.83-1.16) 07/24/17 04:15 Laboratory Tests 07/23/17 07/23/17 07/23/17 15:25 15:25 21:10 Troponin I 0.587 H 1.820 H NT-Pro-B Natriuret Pep 1660 H LDL Cholesterol, Calc 07/24/17 07/24/17 04:15 04:15 Troponin I 2.240 H NT-Pro-B Natriuret Pep LDL Cholesterol, Calc 107 H Physical Exam - Physical Exam General Appearance: alert, no apparent distress EENT: PERRL/EOMI, normal ENT inspection Neck: non-tender Respiratory: lungs clear Cardiac/Chest: regular rate, rhythm, other (Left radial puncture site ecchymosis , intact pulse, no bruit or thrill), No edema, No gallop, No JVD Abdomen: non-tender, soft ICD10 Worksheet Patient Problems: Problems Problem Status Onset Chest pain Acute Non-ST elevation [place] (NSTEMI) Acute
--- NOTE | 2017-07-25 10:33 | PDDCSUM ---
Discharge Summary Discharge Summary: Dates of service 07/23-07/25/17 Consultations: cardiology Procedures performed: cardiac catheterization, echo Hospital course by problem: # NSTEMI: presenting with chest holloway and non diagnostic ECG but rise in troponin to >2, sp cath with PCI to circumflex # stage 4 NSCLD: with known mets to bone, prior lobectomy, on personal review of cxr noted to have bilateral opacities that were not present previously, less consistent with pneumonia and more consistent with pulmonary edema. Patient remains on RA, non toxic appearing. Echo with preserved EF. # h/o PE: no longer on AC # anemia: this is chronic but currently slightly lower than prior, related to underlying cancer and cancer treatments # SIADH: with Na currently at 132 which is baseline for her, will monitor # ckd: baseline of 1.2 and currently at baseline, will monitor post cath for signs of MONICA # GERD, hypothyroid--continue op mgmt dc home f/u with cardiology and pcp > 35 min spent in dc of patient more than half in coordination of care
--- NOTE | 2017-07-25 16:26 | ASDISCHSUM ---
Discharge Information Plan Status:Home with No Needs Medically Cleared to Leave:07/25/2017 Discharge Date:07/25/2017 01:22 PM CM D/C Disposition: ADT D/C Disposition:Home, Routine, Self-Care Projected Discharge Date:07/25/2017 12:00 AM Transportation at D/C: Discharge Delay Reason: Follow-Up Date:07/25/2017 12:00 AM Discharge Slot: Final Diagnosis: Placement Information Patient Contact Information Contact Name:KAILEE Relationship: Address:[address] [place] Alternate Phone: [facility]/Zip Code:[place] [address] Email: Financial Information Financial Class: Primary Plan Desc:MEDICARE INPATIENT Primary Plan Number:[id number] Secondary Plan Desc:[employer]/MDR SUPPLEMENT Secondary Plan Number:[id number] Assessment Information [facility] Initial CM Assessment Living Arrangements What is your living Answers: With Spouse arrangement? Who do you live with? Type Of Residence What kind of residence do Answers: House you live in? Discharge Plan Comments Coordination Status Comments Notes: Chart reviewed and spoke w/ MARLON Anderson. Pt is a 72 y/o female admitted w/ chest pain. Pt is having a CATH placed. Pt will most likely d/c independent when she is medically stable w/ supportive . No therapies ordered at this time. CM available for changes. Date Signed: 07/24/2017 04:28 PM Electronically Signed By:ISAIAS Lai Intervention Information Intervention Type:*IM-Signed Date of Service:07/25/2017 11:55 AM Patient Type:Inpatient Staff Member:Stroud, Vijaya Hours: Discipline: Severity: Comment:
== END 2017-07-25 13:22 | disposition home or self-care (01) | DRG 247 ==
LOC: F2W 19:44
PROVIDERS: ADMIT Internal Medicine; ATTEND Internal Medicine
PROC: 4A023N7 Measurement of Cardiac Sampling and Pressure, Left Heart, Percutaneous Approach (ICD-10-PCS; principal; 2017-07-24)
PROC: B2111ZZ Fluoroscopy of Multiple Coronary Arteries using Low Osmolar Contrast (ICD-10-PCS; principal; 2017-07-24)
PROC: 027034Z Dilation of Coronary Artery, One Artery with Drug-eluting Intraluminal Device, Percutaneous Approach (ICD-10-PCS; principal; 2017-07-24)
DX: I21.4 Non-ST elevation (NSTEMI) myocardial infarction (principal); I25.10 Atherosclerotic heart disease of native coronary artery without angina pectoris; C79.51 Secondary malignant neoplasm of bone; Z85.118 Personal history of other malignant neoplasm of bronchus and lung; Z90.2 Acquired absence of lung [part of]; D63.0 Anemia in neoplastic disease; D64.81 Anemia due to antineoplastic chemotherapy; E22.2 Syndrome of inappropriate secretion of antidiuretic hormone; N18.9 Chronic kidney disease, unspecified; K21.9 Gastro-esophageal reflux disease without esophagitis; I34.1 Nonrheumatic mitral (valve) prolapse; E03.9 Hypothyroidism, unspecified; E78.5 Hyperlipidemia, unspecified; F32.9 Major depressive disorder, single episode, unspecified; Z86.711 Personal history of pulmonary embolism
CPT/HCPCS: C1725; C1769; C1874; C1887; C9606; J1642; J1644; J2250; J3010; Q9967

== ENCOUNTER → 2017-09-09 | Outpatient (CLI) | payer OTHER, MEDICARE | LOC: FIMAGING 11:30 | PROVIDERS: ATTEND Internal Medicine Hematology & Oncology | PROC: CP1Z1ZZ Planar Nuclear Medicine Imaging of Musculoskeletal System, All using Technetium 99m (Tc-99m) (ICD-10-PCS; principal; 2017-09-09) | DX: C79.51 Secondary malignant neoplasm of bone (principal); C34.31 Malignant neoplasm of lower lobe, right bronchus or lung | CPT/HCPCS: 78306; A9503 ==

== ENCOUNTER 2017-09-10 15:20 | Inpatient (IN) | payer OTHER, MEDICARE ==
[2017-09-10] MEDS ORDERED: NS 500 ML IV ONE (16:07)
--- NOTE | 2017-09-10 16:08 | CPEKG ---
Heart Rate: 83 RR Interval: 723 P-R Interval: 132 QRSD Interval: 84 QT Interval: 420 QTC Interval: 494 P [place]: 54 QRS [place]: -8 T Wave [place]: 49 EKG Severity - ABNORMAL ECG - EKG Impression: SINUS RHYTHM EKG Impression: NONSPECIFIC T ABNORMALITIES, ANTERIOR LEADS EKG Impression: BORDERLINE PROLONGED QT INTERVAL Electronically Signed By: Serina Stallworth 10-Sep-2017 22:47:51
[2017-09-10 16:19] LABS: % IMMATURE GRANULYOCYTES 1.2 % (0.0-1.1); ADD DIFF? NO; ADD MORPH? NO; ADD SCAN? NO; ATYPICAL LYMPHOCYTE FLAG 10 (0-99); FRAGMENT RBC FLAG 0 (0-99); HEMATOCRIT 28.5 % (38.0-47.0); HEMOGLOBIN 9.4 g/dL (12.6-16.3); LEFT SHIFT FLG 10 (0-99); LIPEMIA HEMOLYSIS FLAG 80 (0-99); MEAN CELL HEMOGLOBIN 32.8 pg (27.9-34.1); MEAN CELL VOLUME 99.3 fL (81.5-99.8); MEAN PLATELET VOLUME 8.5 fL (8.7-11.7); PLATELET CLUMPS FLAG 0 (0-99); PLATELET COUNT 407 10^3/uL (150-400); RED BLOOD CELL COUNT 2.87 10^6/uL (4.18-5.33); RED CELL DISTRIBUTION WIDTH 14.6 % (11.5-15.2)
--- NOTE | 2017-09-10 16:23 | EDPHY ---
H & P Time Seen by Provider: 09/10/17 16:05 HPI/ROS: HPI Shortness of breath. 72-year-old female with history of lung cancer as well as coronary artery disease presents to the emergency department from the office of her oncologist with complaint of shortness of breath since Friday. Shortness of breath is worse with any exertion. She denies any associated chest pain. She denies any new cough. No fever. She is not currently on chemotherapy or undergoing radiation therapy. Please see past medical history below. ROS: Constitutional: No fever, no chills. No weakness. Eyes: No discharge. No changes in vision. ENT: No sore throat. No nasal congestion or rhinorrhea. Respiratory: No cough. As above. Cardiac: No chest pain, no palpitations. Gastrointestinal: No abdominal pain, no vomiting, no diarrhea. Genitourinary: No hematuria. No dysuria or increased frequency with urination. Musculoskeletal: No back pain. No neck pain. No myalgias or arthralgias. Skin: No rashes. Neurological: No headache. No focal weakness or altered sensation. Past medical history: As above. Pleural effusion with thoracentesis on June 13. Right lower lobectomy. ND with stent placement June 22. Oncologist is Dr. Nita Murguia. Patient had a CT scan contrast enhanced of her chest today as part of her routine management an as ordered by Dr. Nita Murguia. Depression, hypothyroid, GERD. She takes aspirin and clopidogrel. Social history: She is . No alcohol. Nonsmoker. Physical Exam: General Appearance: Alert, no distress. Mildly dyspneic. This patient is responding to questions appropriately and in full sentences. This patient appears well-hydrated and well-nourished. Eyes: Pupils equal and round no pallor or injection. No lid edema, erythema or injection. Respiratory: There are no retractions, diminished lung sounds right base, otherwise lungs are clear to auscultation with good air movement bilaterally. Mild tachypnea at 25-30. Cardiovascular: Regular rate and rhythm. No murmur. Gastrointestinal: Abdomen is soft and nontender, no masses, bowel sounds normal. No focal tenderness at McBurney's point. No Priest sign. Neurological: Motor sensory function is grossly intact. Cranial nerves are normal. Gait is normal. Skin: Warm and dry, no rashes. Musculoskeletal: Neck is supple and nontender. No JVD. Extremities are symmetrical. No significant lower extremity edema. All joints range without pain or impingement. Psychiatric: No agitation. No depression. Database: EKG: EKG time is 4:04 p.m.; EKG shows a narrow complex normal sinus rhythm with a ventricular rate of 83. The OK, QRS, QT intervals are within normal limits. T- wave inversions in the anterior precordial leads. These are new from prior EKG July 25 of this year. Not classic deep symmetric T-waves or biphasic T- waves associated with Wellens syndrome. There are no ST-T wave changes indicative of ischemic or injury pattern. No evidence of right heart strain. Interpreted by me. Imaging: CT angiogram of chest to evaluate for pulmonary embolism; significant for widespread bilateral metastatic disease. No definitive pulmonary embolism. Right perihilar atelectasis and congestion. Right middle and upper lobe atelectasis with superimposed pneumonia. Moderate right-sided effusion significantly worse since last study. Small left-sided effusion. Procedures: Emergency department course: Vital signs reviewed. Patient is afebrile. Tachypnea at 30 in triage. Pulse oximetry 96% on room air. Blood pressure unremarkable. IV was placed. EKG obtained and reviewed by myself immediately. Patient denies any chest pain at this time. 4:50 p.m., spoke with on-call radiologist Dr. Jasiel Chris. He read the patient's CT scan from 1:30 p.m. today. This was not a PE study. She has significantly progressed lung cancer in both lungs. A moderate pleural effusion on the right side. She has what appears to be occlusion of the right pulmonary artery branches from metastasis. This study is not adequate to evaluate for pulmonary embolism. There is no significant right heart strain to suggest a large pulmonary embolism. 4:55 p.m., patient re-evaluated. I explained that her D-dimer was significantly elevated. I discussed the results of her CT scan from above and explained to her that to evaluate for a pulmonary embolism which given her acute onset of worsening shortness of breath starting on Friday is certainly a concern that we needed to get another CAT scan on her. She consents. Her GFR is greater than 60. Her creatinine is 0.8. 6:15 p.m., patient re-evaluated. She is sitting upright in bed and reading. She appears comfortable. Pulse oximetry 98% on 2 L of nasal cannula oxygen. She just returned from CT. Nurse reported that she got up to go the bathroom and was dyspneic, weight back to her bed. 6:35 p.m., patient re-evaluated. Discussed results of CT and need for antibiotics as well as admission. All of her questions were answered. Hospitalist paged. She will be started on IV azithromycin and ceftriaxone to treat for probable pneumonia as noted on CT results. Blood cultures will be obtained before antibiotics administered. 6:40 p.m., discussed case with hospitalist Dr. Catie Reed. Case discussed in detail. She accepts this patient for admission. Patient's remaining emergency department course under my care has been unremarkable. She was admitted in stable condition to the hospitalist service. Differential Diagnosis: The differential diagnosis on this patient includes but is not limited to congestive heart failure, reactive airway disease, pneumonia, pulmonary embolism , acute coronary syndrome, pericardial effusion. This represents a partial list of diagnoses considered. These considerations are based on history, physical exam, past history, reassessment and diagnostic testing. Smoking Status: Never smoked Constitutional: Initial Vital Signs Temperature (C) 36.5 C 09/10/17 15:24 Heart Rate 88 09/10/17 15:24 Respiratory Rate 30 H 09/10/17 15:24 Blood Pressure 135/95 H 09/10/17 15:24 O2 Sat (%) 96 09/10/17 15:24 O2 Delivery Mode Room Air O2 (L/minute) 2 Allergies/Adverse Reactions: Penicillins Allergy (Mild, Verified 09/10/17 15:23) Rash Sulfa (Sulfonamide Antibiotics) Allergy (Mild, Verified 09/10/17 15:23) Rash Home Medications: Medication Instructions Recorded Omeprazole [Prilosec 20 mg] 20 mg PO DAILY PRN 08/03/14 Brimonidine 0.1% [ALPHAGAN P 0.1% 1 drop EACHEYE BID 07/23/17 (*)] Desvenlafaxine [Desvenlafaxine ER] 50 mg PO DAILY 07/23/17 Hydrocodone/Acetaminophen [[place] 1 tab PO BID PRN 07/23/17 5/325 (*)] LORazepam [Ativan (*)] 1 mg PO HS PRN 10/11/17 Levothyroxine [Synthroid 88 mcg 88 mcg PO DAILY@09 07/23/17 (*)] Mirtazapine [Remeron Soltab 30 mg 30 mg PO HS 07/23/17 (*)] Multivitamins [Multivitamin (*)] 1 each PO DAILY 07/23/17 Aspirin EC [Aspirin EC 325 mg (*)] 325 mg PO DAILY #30 tab 07/25/17 Atorvastatin Calcium [Lipitor 40 80 mg PO DAILY #30 tab 07/25/17 mg (*)] Clopidogrel Bisulfate [Plavix (*)] 75 mg PO HS 09/10/17 Bimatoprost 0.01% [Lumigan 0.01% 1 drops EACHEYE HS 09/11/17 (*)] Acetaminophen [Tylenol 325mg (*)] 650 mg PO Q4HRS PRN tab 09/12/17 Azithromycin [Zithromax] 250 mg PO DAILY #3 tab 09/12/17 Polyethylene Glycol 3350 [Miralax 17 gm PO DAILY PRN pkt 09/12/17 17 gm (*)] Medical Decision Making - Data Points Laboratory Results: Laboratory Results 09/10/17 16:02 09/10/17 16:02 Medications Given: Discontinued Medications Acetaminophen (Tylenol) 650 mg PO Q4HRS PRN PRN Reason: Pain, Mild/Fever, Can Take PO Stop: 03/09/18 20:50 Last Admin: 09/11/17 09:37 Dose: 650 mg Aspirin Buffered (Aspirin Ec) 325 mg PO DAILY FRANK[facility]N Stop: 03/10/18 08:59 Last Admin: 09/12/17 10:04 Dose: 325 mg Atorvastatin Calcium (Lipitor) 80 mg PO DAILY [facility]N Stop: 03/10/18 08:59 Last Admin: 09/12/17 10:04 Dose: 80 mg Bimatoprost (Lumigan 0.01%) 1 drops EACHEYE HS [facility] Stop: 03/10/18 20:59 Last Admin: 09/11/17 20:19 Dose: 1 drop Brimonidine Tartrate (Alphagan P 0.1%) 1 drops EACHEYE BID FRANKLYN Stop: 03/10/18 08:59 Last Admin: 09/12/17 09:00 Dose: 1 drop Clopidogrel Bisulfate (Plavix) 75 mg PO HS [facility] Stop: 03/10/18 20:59 Last Admin: 09/11/17 20:17 Dose: 75 mg Enoxaparin Sodium (Lovenox) 40 mg SC DAILY [facility] Stop: 03/10/18 08:59 Last Admin: 09/12/17 10:06 Dose: 40 mg Heparin Sodium (Porcine) (Heparin Lock Flush) 500 unit IVP ONCE ONE Stop: 09/12/17 16:31 Last Admin: 09/12/17 16:29 Dose: 500 unit Sodium Chloride (Ns) 500 mls @ 1,000 mls/hr IV EDNOW ONE PRN Reason: Protocol Stop: 09/10/17 16:36 Last Admin: 09/10/17 18:35 Dose: Not Given Azithromycin 500 mg/ Dextrose 255 mls @ 255 mls/hr IV EDNOW ONE PRN Reason: Protocol Stop: 09/10/17 19:41 Last Admin: 09/10/17 21:53 Dose: 255 mls Ceftriaxone Sodium/Dextrose (Rocephin 1 Gm (Premix)) 50 mls @ 100 mls/hr IV EDNOW ONE PRN Reason: Protocol Stop: 09/10/17 19:11 Last Admin: 09/10/17 19:47 Dose: 50 mls Azithromycin 500 mg/ Dextrose 255 mls @ 255 mls/hr IV DAILY FRANKLYN PRN Reason: Protocol Stop: 10/11/17 08:59 Last Admin: 09/12/17 10:01 Dose: 255 mls Ceftriaxone Sodium/Dextrose (Rocephin 1 Gm (Premix)) 50 mls @ 100 mls/hr IV DAILY FRANKLYN PRN Reason: Protocol Stop: 10/11/17 08:59 Last Admin: 09/12/17 09:00 Dose: 50 mls Sodium Chloride (Ns) 1,000 mls @ 75 mls/hr IV CONT [facility]ANK[facility]N Stop: 03/09/18 20:59 Last Admin: 09/10/17 21:52 Dose: 1,000 mls Levothyroxine Sodium (Synthroid) 88 mcg PO DAILY@09 [facility]N Stop: 03/10/18 08:59 Last Admin: 09/12/17 08:59 Dose: 88 mcg Lorazepam (Ativan) 1 mg PO HS PRN PRN Reason: Anxiety Stop: 03/10/18 00:55 Last Admin: 09/11/17 20:21 Dose: 1 mg Mirtazapine (Remeron Soltab) 30 mg PO HS [facility] Stop: 03/10/18 20:59 Last Admin: 09/11/17 20:17 Dose: 30 mg Miscellaneous Medication (Desvenlafaxine [Desvenlafaxine Er]) 50 mg PO DAILY [facility] Stop: 03/10/18 08:59 Last Admin: 09/12/17 10:07 Dose: Not Given Morphine Sulfate (Roxanol Oral Solution) 2 - 5 mg PO Q2HRS PRN PRN Reason: Short of Breath/Dyspnea Stop: 09/21/17 12:39 Last Admin: 09/12/17 08:35 Dose: 5 mg Ondansetron HCl (Zofran) 4 mg IVP Q4HRS PRN PRN Reason: Nausea/Vomiting, Can't Take PO Stop: 03/09/18 20:50 Last Admin: 09/11/17 11:25 Dose: 4 mg Ondansetron HCl (Zofran Odt) 4 mg PO Q4HRS PRN PRN Reason: Nausea/Vomiting, Use 1st Stop: 03/09/18 20:50 Last Admin: 09/12/17 08:58 Dose: 4 mg Senna/Docusate Sodium (Senokot-S) 1 - 2 tab PO BID FRANKLYN PRN Reason: Protocol Stop: 03/10/18 20:59 Last Admin: 09/12/17 10:05 Dose: 1 tab Departure - Departure Disposition: [facility] Inpatient Acute Clinical Impression: Dyspnea, History of lung cancer, Pneumonia, Advanced metastatic lung cancer, Pleural effusion
[2017-09-10 16:24] LABS: INR 1.13 (0.83-1.16); PROTIME(PATIENT) 14.7 SEC (12.0-15.0)
[2017-09-10 16:25] LABS: APTT 70.2 SEC (23.0-38.0)
[2017-09-10 16:38] LABS: ANION GAP 14 mEq/L (8-16); CALCIUM 8.2 mg/dL (8.5-10.4); CARBON DIOXIDE 19 mEq/l (22-31); CHLORIDE 100 mEq/L (97-110); CREATININE 0.8 mg/dL (0.6-1.0); GLOMERULAR FILTRATION RATE > 60; GLUCOSE 87 mg/dL (70-100); POTASSIUM 4.2 mEq/L (3.5-5.2); SODIUM 133 mEq/L (134-144)
[2017-09-10 16:50] LABS: TROPONIN I 0.015 ng/mL (0.000-0.034)
[2017-09-10] MEDS ORDERED: IOPAMIDOL (ISOVUE 370) 100 ML BTL IV ONE (17:08)
[2017-09-10] MEDS ORDERED: AZITHROMYCIN IV 500 MG in D5W 250 ML IV ONE (18:42)
[2017-09-10] MEDS ORDERED: ALBUTEROL 3 ML DEYVIAL IH PRN (20:51)
[2017-09-10] MEDS ORDERED: ONDANSETRON DISINTEGRATING 4 MG TAB PO PRN (20:51)
[2017-09-10] MEDS ORDERED: LORazepam 0.5 MG TAB PO PRN (20:51)
[2017-09-10] MEDS ORDERED: ONDANSETRON 4 MG/2 ML VIAL IVP PRN (20:51)
[2017-09-10] MEDS ORDERED: ACETAMINOPHEN 325 MG TAB PO PRN (20:51)
[2017-09-10] MEDS ORDERED: OXYCODONE/APAP 5/325 TAB PO PRN (20:51)
[2017-09-10] MEDS ORDERED: NS 1,000 ML IV SCH (21:00)
--- NOTE | 2017-09-10 21:41 | GHP ---
[f rep st] HISTORY AND PHYSICAL DATE OF ADMISSION: 09/10/2017 CHIEF COMPLAINT: Shortness of breath. 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 She was seen in consultation at the [place] last month and in early June underwent VATS pleurodesis for her right-sided malignant pleural effusion. She was initially diagnosed in 2010 and has undergone multiple courses of chemotherapy. At this point, she is on immunotherapy with atezolizumab. She was seen in followup at the [facility] today where she was noted to have increased shortness of breath with a room air sat of 83%. She was sent to the emergency department where a CT pulmonary angiogram was negative for pulmonary embolism. However, she has interval progression of bilateral pulmonary metastatic disease compared to May 2017. She denies fevers or chills. She has had a chronic cough for the past 6 years without significant change. She denies sputum production. She has no chest pain, but reports shortness of breath. She reports poor oral intake. She is considering forgoing further treatment and focusing more on her quality of life rather than quantity and ongoing interventions. She is admitted to the hospital for further management given her hypoxemia and worsening metastatic disease. PAST MEDICAL/SURGICAL HISTORY: 1. Adenocarcinoma of the lung, 1st diagnosed in August 2011 with skeletal metastases. 2. Malignant pleural effusions, status post VATS pleurodesis June 13, 2017. 3. Recent NSTEMI, status post stent placement on dual antiplatelet therapy. 4. Depression. 5. Hypothyroidism. 6. Status post right thyroidectomy. 7. Status post right lower lobectomy. MEDICATIONS: Please see [facility] for completed outpatient medication list. ALLERGIES: Penicillin and sulfa. SOCIAL HISTORY: The patient moved to [place] to retire from [place]. She is . Her is present at the bedside. She denies tobacco or alcohol use. FAMILY HISTORY: Her father had coronary disease in his 50s. REVIEW OF SYSTEMS: A 10-point review of systems was performed and is negative as per HPI. OBJECTIVE: VITAL SIGNS: Temperature is 36.6, blood pressure 176/93, heart rate 90, respiratory rate 22. She is 96% on 3 L oxygen by nasal cannula. GENERAL: The patient is awake, alert, and oriented, in no acute distress. HEENT: Head is atraumatic, normocephalic. Pupils equal, round, react to light. Extraocular muscles are intact. Oropharynx is clear. Mucous membranes are moist. NECK: Supple. There is no JVD. HEART: Regular rate and rhythm without murmur. LUNGS: Decreased breath sounds on the right, but no significant crackles, rales, rhonchi or wheezing are heard. ABDOMEN: Soft, nondistended, nontender. Normoactive bowel sounds. EXTREMITIES: No cyanosis, clubbing, or edema. NEUROLOGIC: Grossly nonfocal. LABORATORY DATA: CBC reveals white blood cell count 8.6, hemoglobin 9.4, which is stable from her previous, platelets are 407. INR is 1.1. D-dimer is 5.08. Basic metabolic panel shows sodium of 133, bicarb 19, a calcium of 8.2. NT proBNP is 1080, which is down from last month of 1660. TSH is normal. Troponin is negative. CT pulmonary angiogram is negative for pulmonary emboli. She is status post right lower lobe lobectomy with significant interval progression and widespread bilateral intrathoracic metastatic disease compared to May 2017. Progressive areas of superimposed pneumonia cannot be excluded. There are many loculated fluid collections and stable distribution of widespread osteoblastic metastatic disease. She is status post right thyroidectomy. ASSESSMENT/PLAN: The patient is a 72-year-old female with a history of stage IV non-small cell lung cancer who is admitted to the hospital with worsening pulmonary metastatic disease, shortness of breath and possible pneumonia. 1. Acute hypoxemic respiratory failure secondary to progressive metastatic disease and possible postobstructive pneumonia. She is afebrile and has a normal white count, no sepsis physiology. Her CT scan is difficult to interpret. I reviewed with the radiologist. It appears to be more mass-like effect with scarring and loculated effusion. This does not appear to be drainable. She is status post VATS on the right side with pleurodesis. I do not see an indication for thoracentesis or PleurX catheter at this time. I will send a procalcitonin. For now, we will empirically treat with ceftriaxone and azithromycin. However if her procalcitonin is low risk, could consider discontinuation of antibiotics. Supplemental oxygen and supportive care are planned. 2. Metastatic lung cancer. The patient has a progression of her metastatic disease in her lungs as well as widespread skeletal metastases. I discussed with her goals of care and she is leaning towards foregoing further treatment. She is currently on immunotherapy followed by Dr. Murguia. I discussed the case with Dr. Johnson and oncology will consult tomorrow. The patient is interested in a palliative care consult and is also considering hospice. Palliative Care consult was requested for tomorrow. 3. Hyponatremia. This is mild. We will give gentle normal saline overnight, as I suspect this is likely hypovolemic. Repeat labs in the morning. 4. Deep venous thrombosis prophylaxis. Patient is high risk. Will give Lovenox. CODE STATUS: As above, the patient is considering hospice. I plan to return to her bedside to address code status as it was overlooked during her initial visit. DISPOSITION: Patient is admitted to inpatient status. Anticipate she will require greater than 48 hours hospitalization for ongoing management of her acute hypoxemia and worsening metastatic disease. /[id number]/MODL MTDD
[2017-09-11] MEDS ORDERED: LORazepam 1 MG TAB PO PRN (00:56)
[2017-09-11] MEDS ORDERED: HYDROCODONE/APAP 5/325 TAB PO PRN (00:56)
[2017-09-11] MEDS ORDERED: PANTOPRAZOLE SODIUM 40 MG TAB PO PRN (01:09)
[2017-09-11 06:03] LABS: % IMMATURE GRANULYOCYTES 0.7 % (0.0-1.1); ABSOLUTE IMMATURE GRANULOCYTES 0.06 10^3/uL (0.00-0.10); ADD DIFF? NO; ADD MORPH? NO; ADD SCAN? NO; ATYPICAL LYMPHOCYTE FLAG 0 (0-99); FRAGMENT RBC FLAG 0 (0-99); HEMATOCRIT 25.1 % (38.0-47.0); HEMOGLOBIN 8.2 g/dL (12.6-16.3); LEFT SHIFT FLG 0 (0-99); LIPEMIA HEMOLYSIS FLAG 80 (0-99); MEAN CELL HEMOGLOBIN 32.5 pg (27.9-34.1); MEAN CELL HEMOGLOBIN CONCENTR. 32.7 g/dL (32.4-36.7); MEAN CELL VOLUME 99.6 fL (81.5-99.8); MEAN PLATELET VOLUME 8.4 fL (8.7-11.7); PLATELET CLUMPS FLAG 0 (0-99); PLATELET COUNT 379 10^3/uL (150-400); RED BLOOD CELL COUNT 2.52 10^6/uL (4.18-5.33); RED CELL DISTRIBUTION WIDTH 14.6 % (11.5-15.2)
[2017-09-11 06:28] LABS: ANION GAP 8 mEq/L (8-16); CALCIUM 7.8 mg/dL (8.5-10.4); CARBON DIOXIDE 22 mEq/l (22-31); CHLORIDE 105 mEq/L (97-110); CREATININE 0.8 mg/dL (0.6-1.0); GLOMERULAR FILTRATION RATE > 60; GLUCOSE 74 mg/dL (70-100); POTASSIUM 4.3 mEq/L (3.5-5.2); SODIUM 135 mEq/L (134-144)
[2017-09-11] MEDS: ASPIRIN EC 325 MG TAB PO SCH (09:37)
[2017-09-11] MEDS: LEVOTHYROXINE 88 MCG TAB PO SCH (09:52)
[2017-09-11] MEDS: ATORVASTATIN CALCIUM 40 MG TAB PO SCH (09:52)
[2017-09-11] MEDS: BRIMONIDINE 0.1% 5 ML OPHT.BTL EACHEYE SCH ×2 (10:00→20:19)
[2017-09-11] MEDS: ENOXAPARIN 40 MG/0.4 ML SYR SC SCH (10:02)
--- NOTE | 2017-09-11 10:23 | PDMN ---
Medical Necessity Medical necessity: Pt meets IP criteria per MD; est los >2 mn for eval/tx of acute hypoxemic respiratory failure r/t worsening metastatic lung disease & possible postobstructive pneumonia; comorbid adenocarcinoma of the lung w/ skeletal metastases, malignant pleural effusions, recent NSTEMI, s/p R thyroidectomy, s/p R lower lobectomy; per H&P & order 09/10/17
[2017-09-11] MEDS: AZITHROMYCIN IV 500 MG in D5W 250 ML IV SCH (11:24)
[2017-09-11] MEDS: DESVENLAFAXINE 50 MG PO SCH (12:17)
[2017-09-11] MEDS ORDERED: PROCHLORPERAZINE MALEATE 5 MG TAB PO PRN (12:40)
--- NOTE | 2017-09-11 12:52 | PDHOMEO2F ---
Home Oxygen Face to Face Home Orders: I certify that a physician or a nurse practitioner or physician's child and youth program assistant has had a [id number] encounter with this patient on the date of this order due to the diagnosis listed, which relates to the primary reason the patient requires home oxygen. Alternative treatments have been tried, or considered, and deemed ineffective. It is anticipated that supplemental oxygen will result in improvement with treatment. Home oxygen qualifying diagnosis: lung CA SpO2 on room air (%): 87 Frequency of home oxygen needed: continuous Home oxygen liters per minute: 2 Home oxygen delivery device: nasal cannula Concentrator: Yes E-tanks for mobility and back up: Yes If ordering portable O2, is the patient mobile in the home?: Yes I certify that, based on these findings, the home oxygen is medically necessary for this patient for the following length of time. Length of time home oxygen needed: 99 years
--- NOTE | 2017-09-11 14:07 | HOSPPROG ---
Hospitalist Progress Note Assessment/Plan: 72y with SOB. First encounter, chart reviewed. D/W Cm and RN. #AHRF cont supplemental O2 home oxygen multifactorial treat for PNA #Metastatic lung CA followed by oncology #Hyponatremia resolved #Dispo likely in am Palliative care today Subjective: Feeling better today. Eager to go home. Objective: Vital Signs Temp Pulse Resp BP Pulse Ox 36.6 C 87 16 113/60 95 09/11/17 12:00 09/11/17 12:00 09/11/17 12:00 09/11/17 12:00 09/11/17 12:00 Laboratory Results 09/11/17 05:50 09/11/17 05:50 09/10/17 09/11/17 09/12/17 05:59 05:59 05:59 Intake Total 50 Balance 50 PT 14.7 SEC (12.0-15.0) 09/10/17 16:02 INR 1.13 (0.83-1.16) 09/10/17 16:02 - Physical Exam Constitutional: no apparent distress, appears nourished, uncomfortable Eyes: PERRL, anicteric sclera, EOMI Ears, Nose, Mouth, Throat: moist mucous membranes, hearing normal, ears appear normal Cardiovascular: regular rate and rhythym, No JVD, No edema Respiratory: no respiratory distress, no rales or rhonchi, reduced air movement Gastrointestinal: normoactive bowel sounds, No tenderness, No ascites Skin: warm, normal color, No erythema Musculoskeletal: normal joint ROM, no joint effusions, generalized weakness Neurologic: AAOx3 Psychiatric: interacting appropriately, not anxious, not encephalopathic, thought process linear ICD10 Worksheet Patient Problems: Problems Problem Status Onset Dyspnea Acute History of lung cancer Acute Pneumonia Acute Pleural effusion Acute chronic disease mgmt/transitional care Acute Chest pain Acute Non-ST elevation [place] (NSTEMI) Acute
--- NOTE | 2017-09-11 15:42 | PDPCPN ---
Palliative Care Progress Note Assessment/Plan: Referring provider: Dr Reed Reason for consult: Complex medical decision making Symptom control HPI: Shayna Blum is a 72 yo with PMH metastatic lung cancer dx 2010 with mets to bone admitted to the hospital for hypoxia during follow up at [facility]. She has undergone multiple rounds and treatments with chemotherapy, mostly recently on immunotherapy. Also had a consultation at the [facility] over the summer. Recent health complicated with NSTEMI a couple of months ago and recurrent pleural effusions s/p VATS. Ct chest on admission showing progression of lung disease. Palliative care consulted for complex medical decision making. Met with Shayna and her Jesus at the bedside this morning. Shayna stated she understands from the ct her disease is progressing. She has not spoken with her oncologist but feels the focus should be on comfort care. She stated "I'm tired". She has been doing remarkably well over the past 6 years with her cancer and while her quality of life has shifted a little, she still has maintained a very good quality of life. She states she used to hike and go skiing and while that has been limited since her cancer dx she still is able to get outside and paint which is what she loves. In the past few weeks she has noticed increasing symptoms mainly fatigue and dyspnea limiting her activities and quality of life even more. Also with some mild nausea and loss of appetite. We spoke at length about options including hospice care and symptom management. She would like to speak with hospice for information and possibly enroll for more support at home. she would like to speak with her oncologist and children about her decision but is not interested in continuing therapeutic treatment for her cancer. Assessment: Physical: - Pain: none - tylenol PRN or opiates if more severe - Dyspnea: significant at times - oxygen as needed - on nebs - added roxanol in small doses to see if this helps with subjective dyspnea - may also consider dexamethasone 4mg daily if infection ruled out and just focusing on comfort - Nausea: somewhat from antibiotics but present prior to admission - zofran PRN - added compazine PRN - can also try gregory root - constipation - at risk with opiates - bowel regimen with senna and colace Emotional/psychological: Has a lot of support from family and friends Advanced Care Planning: Is patient decisional?: Yes Code Status: DNR POA: Jesus is MDPOA Plan: She wants to focus on quality of life and comfort. She is interested in meeting with hospice care. She also would like to speak with oncology about prognosis. 09/11/17 15:43 Subjective: I'm feeling ok Objective: Social History: to Jesus. Lives in [place] with their dog. Has 2 sons from a previous marriage local and involved. She likes to be outside in nature and paint landscapes and abstracts. Medication list reviewed ROS: General: fatigue, weakness, weight loss ENT: negative Resp: dyspnea, cough GI: poor appetite, nausea : negative MS: negative Skin: negative Neuro: negative Psych: negative Functional assessment: PPS: 60% Functional status: independent Vital Signs Temp Pulse Resp BP Pulse Ox 36.6 C 87 16 113/60 95 09/11/17 12:00 09/11/17 12:00 09/11/17 12:00 09/11/17 12:00 09/11/17 12:00 Laboratory Results 09/11/17 05:50 09/11/17 05:50 09/10/17 09/11/17 09/12/17 05:59 05:59 05:59 Intake Total 50 Balance 50 PT 14.7 SEC (12.0-15.0) 09/10/17 16:02 INR 1.13 (0.83-1.16) 09/10/17 16:02 Physical Exam - Physical Exam General Appearance: alert, no apparent distress Respiratory: No respiratory distress, No accessory muscle use Skin: normal color, warm/dry Extremities: No pedal edema Neuro/Psych: alert, oriented x 3 ICD10 Worksheet Patient Problems: Problems Problem Status Onset Dyspnea Acute History of lung cancer Acute Palliative care encounter Acute Pleural effusion Acute Pneumonia Acute Chest pain Acute Non-ST elevation NC (NSTEMI) Acute chronic disease mgmt/transitional care Acute - ICD10 Problem Qualifiers (1) Palliative care encounter
--- NOTE | 2017-09-11 15:48 | ASMTCMCOM ---
CM Note CM Note Notes: Pt. is a 72-year-old woman admitted for hypoxemia. Pt. w/ hx. lung cancer with skeletal mets. Hx. CAD with recent WI and a stent placed. Hx. pleural effusion with thoracentesis and R lower lobectomy. Pt. dx w/ lung cancer in 2010. Hx. depression, GERD and hypothyroid. Pt. had Palliative Care consult today. Pt. to possibly choose home hospice. SWer to check in w/ patient tomorrow to see if she has made a decision. Likely d/c tomorrow. Plan TBD. Date Signed: 09/11/2017 03:48 PM Electronically Signed By:Glory Lubin LCSW
[2017-09-11] MEDS ORDERED: POLYETHYLENE GLYCOL 3350 17 GM PKT PO PRN (16:17)
[2017-09-11] MEDS ORDERED: BISACODYL 10 MG SUPP PR PRN (16:17)
[2017-09-11] MEDS ORDERED: LACTULOSE 20 GM/30 ML UDCUP PO PRN (16:17)
[2017-09-11] MEDS ORDERED: MAGNESIUM HYDROXIDE 30 ML UDCUP PO PRN (16:17)
[2017-09-11] MEDS: morphINE 10 MG/0.5 ML UDSYR PO PRN (16:59)
[2017-09-11] MEDS: SENNOSIDES/DOCUSATE SODIUM TAB PO SCH (20:17)
[2017-09-11] MEDS ORDERED: BIMATOPROST 0.01% 2.5 ML OPHT.BTL EACHEYE SCH (21:00)
[2017-09-11] MEDS ORDERED: CLOPIDOGREL BISULFATE 75 MG TAB PO SCH (21:00)
[2017-09-11] MEDS ORDERED: BIMATOPROST 0.01% EACHEYE SCH (21:00)
[2017-09-11] MEDS ORDERED: MIRTAZAPINE 30 MG ODTAB PO SCH (21:00)
--- NOTE | 2017-09-11 21:57 | GCON ---
[f rep st] CONSULTATION NEW PATIENT CONSULTATION REFERRING PHYSICIAN: Catie Reed MD REASON FOR CONSULTATION: Patient known to Dr. Nita Murguia, with metastatic adenocarcinoma of the lung, who presented with increasing shortness of breath. HISTORY OF PRESENT ILLNESS: Shayna was diagnosed with stage IIIA (T1b N2) adenocarcinoma of the rig ht lower lobe on 09/27/2011, after fracturing her rib in a ski accident. This led to imaging. She h ad a lobectomy with mediastinal node dissection. She received chemo RT with weekly Carbo Taxol compl eted January 02, 2012, followed by 2 cycles of Carbo Taxol completed 02/27/2017. She then developed me tastatic disease to the bone in early 2012. She received 6 cycles of pemetrexed and carboplatin plus Avastin. She receive maintenance for essentially 3 years, and discontinued 04/16/2013, due to fatig ue, not progression. 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 This was discontinued in April of 2017, due to progressive diseas e. She had a right pleurodesis in June of 2017. MET, KRAS, EGFR, ALK, ROS negative. Again, elza garrido did have an activating HER2/Xavier mutation. PD-L1 is unknown at this time. She last saw with Dr. Murguia on 08/27/2017, and at that time the patient was moving her treatment back t [facility], as she has had progression on the clinical trial. Dr. Murguia performed restaging scans yeste rday, which I am unable to obtain other than a CTA. She also was in cardiac rehab yesterday and expe rienced worsening shortness of breath, and due to underlying cardiac issues, she was sent to the ER a nd admitted after a CTA of the chest showed significant interval progression, widespread bilateral in trathoracic metastatic disease. Progressive areas of superimposed pneumonia could not be excluded. A component of fluid overload also could not be excluded. Dr. Murguia discussed next-line therapy with patient, including docetaxel versus trastuzumab versus palli ation alone. REVIEW OF SYSTEMS: Patient denies any fever or cough. She has recently just had increasing shortnes s of breath over the past few weeks, but has not been severe. She does not wear oxygen at home. She denies any new bone pain, any new neurologic symptoms. She has a very supportive family. PAST MEDICAL HISTORY: 1. Non-ST elevation NC. Posterior wall cath with occlusion of circumflex artery. This was stented in July of 2017. 2. Right pleurodesis at [facility], June 2017. 3. Right lower lobe lobectomy, 10/08/2011. 4. Partial thyroidectomy in 2006 for an inconclusive biopsy of thyroid nodule. She reports final pa th was benign. 5. Bladder lift. 6. Orthopedic surgeries on the left shoulder. 7. Tubal ligation. FAMILY HISTORY: Mother of cancer, possibly lymphoma. Father from an NC at 56. Sister d from non-Hodgkin lymphoma. Brother at age 72 from pneumonia, he also had a history of colon c ancer. The patient has 2 sons. SOCIAL HISTORY: . Occupation: Artist, retired. Alcohol use: Occasional. PHYSICAL EXAMINATION: VITAL SIGNS: Today, blood pressure 113/60, heart rate 87, respiration rate 16 , saturating 95% on 2 L nasal cannula. Her temp is 36.6. GENERAL: She looks younger than her state d age, not in acute distress, actually healthy-appearing. HEENT: Anicteric. Oropharynx is clear. HEART: Regular rate and rhythm. LUNGS: Essentially clear to auscultation. Mild decreased breath s ounds on the right lower lobe, but no wheezing. ABDOMEN: Soft, nontender. Bowel sounds positive. LOWER EXTREMITIES: No edema. NEUROLOGIC: Nonfocal. LABORATORY DATA: Today: Hemoglobin 8.2, hematocrit 25.1, platelet count of 379. White blood cell 8 .4, INR 1.13. BNP was 1080. Procalcitonin 0.11. TSH 3.59. Creatinine 0.8. Imaging as mentioned a brigida. CLINICAL IMPRESSION AND PLAN: The patient is a very zeeshan 72-year-old woman with metastatic non-sma ll cell lung cancer to bone and lung. She presented with increasing shortness of breath during cardi ac rehabilitation and, subsequently, CTA chest showed progressive disease in the lungs and possible p ostobstructive pneumonia. 1. Metastatic non-small cell lung cancer to bone and lung. I cannot find [facility] imaging from yesterda y including a CT chest, abdomen and pelvis, and bone scan, but I would imagine this is consistent wit h her CTA yesterday showing progressive disease in the lung. She talked with Dr. Sanchez, at [facility], regarding immunotherapy, TDM-1 treatment therapy or chemotherapy with taxane. Dr. Murguia has already discussed pros and cons, and patient seems to be opting for palliation alone. She is tir ed and not interested in any of the side effects. She understands that immunotherapy poses less risk for myelosuppression, but autoimmune side effects can be as much as 20%. Right now, she has met [facility], and will follow up with Dr. Murguia on discharge. She will go home on oxygen therapy and possibly some antibiotics, although I am not clear that she has an underlying pneumonia. 2. Shortness of breath, I think due to progressive lung disease. No evidence of pulmonary embolus. Questionable pneumonia. She is on oxygen. I do not think this is from any active ischemic heart di sease at this time. She is status post a stent in July, but she remains on aspirin. 3. Nausea, on Zofran. 4. Bone disease. She was on denosumab at the [place], can discuss continuing this with Dr. Murguia. 5. Patient in general agreed with overall plan, will be in discussion with Dr. Murguia once patient rafia shafer, and will arrange followup accordingly. /[id number]/MODL
[2017-09-11 23:28] VITALS: RESP 16
[2017-09-12] MEDS: morphINE 10 MG/0.5 ML UDSYR PO PRN (08:35)
[2017-09-12] MEDS: LEVOTHYROXINE 88 MCG TAB PO SCH (08:59)
[2017-09-12] MEDS: BRIMONIDINE 0.1% 5 ML OPHT.BTL EACHEYE SCH (09:00)
[2017-09-12] MEDS: AZITHROMYCIN IV 500 MG in D5W 250 ML IV SCH (10:01)
[2017-09-12] MEDS: ATORVASTATIN CALCIUM 40 MG TAB PO SCH (10:04)
[2017-09-12] MEDS: ASPIRIN EC 325 MG TAB PO SCH (10:04)
[2017-09-12] MEDS: SENNOSIDES/DOCUSATE SODIUM TAB PO SCH (10:05)
[2017-09-12] MEDS: ENOXAPARIN 40 MG/0.4 ML SYR SC SCH (10:06)
[2017-09-12] MEDS: DESVENLAFAXINE 50 MG PO SCH (10:07)
--- NOTE | 2017-09-12 14:37 | PDPCPN ---
Palliative Care Progress Note Assessment/Plan: HPI: Shayna Blum is a 72 yo with PMH metastatic lung cancer dx 2010 with mets to bone admitted to the hospital for hypoxia during follow up at [facility]. She has undergone multiple rounds and treatments with chemotherapy, mostly recently on immunotherapy. Also had a consultation at the [place] over the summer. Recent health complicated with NSTEMI a couple of months ago and recurrent pleural effusions s/p VATS. Ct chest on admission showing progression of lung disease. Palliative care consulted for complex medical decision making. Shayna seen this afternoon, she states the roxanol didn't seem to help her breathing much but is effect for her occasional SI joint pain. She is planning on seeing her oncologist thom at 5 pm to talk with her about next steps. She is also interested in meeting with hospice care. We spoke about hospice can come and see her at her home at any point even if just for information. Did confirm with [place] that they do service the [facility]. Assessment: Physical: - Pain: none - tylenol PRN or opiates if more severe - Dyspnea: significant at times - oxygen as needed - on nebs - added roxanol in small doses to see if this helps with subjective dyspnea - may also consider dexamethasone 4mg daily if infection ruled out and just focusing on comfort - Nausea: somewhat from antibiotics but present prior to admission - zofran PRN - added compazine PRN - can also try gregory root - constipation - at risk with opiates - bowel regimen with senna and colace Emotional/psychological: Has a lot of support from family and friends Advanced Care Planning: Is patient decisional?: Yes Code Status: DNR POA: Jesus is MDPOA Plan: She wants to focus on quality of life and comfort. [facility] hospice does service her area if needed as an option. She is meeting [facility] Dr Murguia today at 5pm and is still leaning towards hospice care. Subjective: I feel ok Objective: Vital Signs Temp Pulse Resp BP Pulse Ox 36.8 C 85 16 116/63 93 09/12/17 11:28 09/12/17 11:28 09/12/17 11:28 09/12/17 11:28 09/12/17 11:28 Laboratory Results 09/11/17 05:50 09/11/17 05:50 09/11/17 09/12/17 09/13/17 05:59 05:59 05:59 Intake Total 50 834 Balance 50 834 PT 14.7 SEC (12.0-15.0) 09/10/17 16:02 INR 1.13 (0.83-1.16) 09/10/17 16:02 Physical Exam - Physical Exam General Appearance: alert, no apparent distress Respiratory: No respiratory distress, No accessory muscle use Skin: normal color, warm/dry Extremities: No pedal edema Neuro/Psych: alert, oriented x 3 ICD10 Worksheet Patient Problems: Problems Problem Status Onset Dyspnea Acute History of lung cancer Acute Palliative care encounter Acute Pleural effusion Acute Pneumonia Acute Chest pain Acute Non-ST elevation MD (NSTEMI) Acute chronic disease mgmt/transitional care Acute - ICD10 Problem Qualifiers (1) Palliative care encounter
--- NOTE | 2017-09-12 15:21 | GDS ---
[f rep st] DISCHARGE SUMMARY DISCHARGE DIAGNOSES: 1. Acute hypoxemic respiratory failure. 2. Metastatic lung cancer. 3. Hyponatremia. CONSULTATIONS: 1. Oncology. 2. Palliative Care. PHYSICAL EXAMINATION: GENERAL: The patient is alert. VITAL SIGNS: Afebrile at 36.8. Pulse is 85, respiratory rate 16, blood pressure is 116/63, she is saturating 93% on 2 L. HOSPITAL COURSE: The patient is a 72-year-old female with a history of metastatic lung cancer. She presented to the emergency room with complaints of shortness of breath. She was evaluated and diagno sed with acute hypoxemic respiratory failure. She has received supplemental oxygen during this hospi talization. This is multifactorial. 1. She does potentially have a component of pneumonia. She will continue azithromycin at the time o f disposition for potential pneumonia. 2. Metastatic lung cancer. The patient has an appointment with her primary oncologist, Dr. Nita Mcdowell x, today at 5 p.m.; she will follow up with Oncology today. 3. Hyponatremia. This has resolved with fluid resuscitation. DISPOSITION: The patient will be discharged home today with supplemental oxygen. PENDING STUDIES: There are no pending studies. FOLLOWUP: 1. With her primary oncologist, Dr. Nita Murguia. 2. She will also follow up with her primary care physician, Dr. Jcaob Casiano. I have spent greater than 35 minutes in the care, coordination, and management of this patient's disp osition. /[id number]/MODL
[2017-09-12 15:30] VITALS: BP 123/68; PULSE 92; TEMP 98.4; O2SAT 95
--- NOTE | 2017-09-12 16:38 | ASMTCMCOM ---
CM Note CM Note Notes: Palliative Care team has worked with Pt. several times today. Pt. has not yet decided which hospice company to pursue for home hospice care. Notably, [facility] and [facility] can travel to [place]. Pt. is aware. Pt. has an outpatient appointment after d/c with Nita Murguia MD for an oncology visit at 17:00 today. Pt. d/cing independently. Date Signed: 09/12/2017 04:38 PM Electronically Signed By:Glory Lubin LCSW
--- NOTE | 2017-09-13 12:50 | ASDISCHSUM ---
Discharge Information Plan Status:Home with No Needs Medically Cleared to Leave: Discharge Date:09/12/2017 04:35 PM CM D/C Disposition:Home, Routine, Self-Care ADT D/C Disposition:Home, Routine, Self-Care Projected Discharge Date:09/12/2017 04:35 PM Transportation at D/C:Family Discharge Delay Reason: Follow-Up Date:09/12/2017 04:35 PM Discharge Slot: Final Diagnosis: Placement Information Patient Contact Information Contact Name:KAILEE Relationship: Address:[address] [place] Alternate Phone: [facility]/Zip Code:[place] [address] Email: Financial Information Financial Class: Primary Plan Desc:MEDICARE INPATIENT Primary Plan Number:[id number] Secondary Plan Desc:[employer]/MDR SUPPLEMENT Secondary Plan Number:[id number] Assessment Information [facility] CM Progress Note CM Note CM Note Notes: Pt. is a 72-year-old woman admitted for hypoxemia. Pt. w/ hx. lung cancer with skeletal mets. Hx. CAD with recent FL and a stent placed. Hx. pleural effusion with thoracentesis and R lower lobectomy. Pt. dx w/ lung cancer in 2010. Hx. depression, GERD and hypothyroid. Pt. had Palliative Care consult today. Pt. to possibly choose home hospice. SWer to check in w/ patient tomorrow to see if she has made a decision. Likely d/c tomorrow. Plan TBD. Date Signed: 09/11/2017 03:48 PM Electronically Signed By:Glory Lubin LCSW [facility] CM Progress Note CM Note CM Note Notes: Palliative Care team has worked with Pt. several times today. Pt. has not yet decided which hospice company to pursue for home hospice care. Notably, [facility] and [facility] can travel to [place]. Pt. is aware. Pt. has an outpatient appointment after d/c with Nita Murguia MD for an oncology visit at 17:00 today. Pt. d/cing independently. Date Signed: 09/12/2017 04:38 PM Electronically Signed By:Glory Lubin LCSW Intervention Information Intervention Type:*IM-Signed Date of Service:09/12/2017 03:01 PM Patient Type:Inpatient Staff Member:Vijaya Stroud Hours: Discipline: Severity: Comment:
== END 2017-09-12 16:35 | disposition home or self-care (01) | DRG 189 ==
LOC: F3E 20:45
PROVIDERS: ADMIT Hospitalist; ATTEND Hospitalist
DX: J96.01 Acute respiratory failure with hypoxia (principal); J18.9 Pneumonia, unspecified organism; C34.90 Malignant neoplasm of unspecified part of unspecified bronchus or lung; J90 Pleural effusion, not elsewhere classified; E87.1 Hypo-osmolality and hyponatremia; C79.51 Secondary malignant neoplasm of bone; I25.10 Atherosclerotic heart disease of native coronary artery without angina pectoris; I25.2 Old myocardial infarction; E89.0 Postprocedural hypothyroidism; Z90.2 Acquired absence of lung [part of]
CPT/HCPCS: A9503; J0456; J0696; J1642; J1650; J2405; Q9967

== ENCOUNTER → 2017-09-24 | Outpatient (CLI) | payer OTHER, MEDICARE | LOC: FIMAGING 16:12 | PROVIDERS: ATTEND Internal Medicine Hematology & Oncology | DX: M79.604 Pain in right leg (principal) ==